=== PATIENT | female | born 1955 | race Caucasian/White ===

== ENCOUNTER → 2017-02-18 | Outpatient (CLI) | payer OTHER ==
[~2017-02-18] MED LIST: ESTRACE0.5 MG PO; LISINOPRIL20 MG PO
== END ==
LOC: CAT 11:08
DX: Z13.6 Encounter for screening for cardiovascular disorders (principal)

== ENCOUNTER → 2018-02-03 | Outpatient (CLI) | payer OTHER ==
[~2018-02-03] MED LIST changes: +LIPITOR10 MG PO; +LISINOPRIL10 MG PO; +LUTEIN-ZEAXANT1 EACH PO; +PREMARIN30 GM
== END ==
LOC: RAD 13:28
DX: Z12.31 Encounter for screening mammogram for malignant neoplasm of breast (principal)

== ENCOUNTER → 2018-07-15 | Outpatient (CLI) | payer OTHER ==
[~2018-07-15] MED LIST changes: -LIPITOR10 MG PO; -LISINOPRIL10 MG PO; -LUTEIN-ZEAXANT1 EACH PO; -PREMARIN30 GM
== END ==
LOC: ULTRA 08:56
DX: N63.20 Unspecified lump in the left breast, unspecified quadrant (principal); R92.8 Other abnormal and inconclusive findings on diagnostic imaging of breast; I10 Essential (primary) hypertension; E78.00 Pure hypercholesterolemia, unspecified

== ENCOUNTER → 2018-07-19 | Outpatient (CLI) | payer OTHER ==
--- NOTE | ~2018-07-19 | PATH ---
[facility] [address] [place] [address] PATHOLOGY RPT PROCEDURE Name: LOUIS COTTON Room #: REG SHABNAM Kim#: [id number] Admission: 07/19/18 Date of : 53 Discharge: Report #: [id number] Path Case #: [id number] LCA Accession Number: [id number] . 01 Material submitted: . LEFT BREAST MASS 12:00, 3 CM FN . 01 Clinical history: . Left breast mass . 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 [facility]/07/20/2018 . 02 Comment: Specimen type: Needle core biopsy Tumor site: Left breast at 12:00, 3 cm from nipple Tumor quantitation: 1.6 cm Histologic type: Invasive ductal carcinoma with lobular features Histologic grade: Naylor grade 2 Tubules, nuclei and mitoses: 3, 2 and 1, respectively LVSI: Not identified Microcalcifications: Present in non-neoplastic ducts Markers: ER, [place], HER2/WALE and Ki-67 Block: A1 . Co-review: Dr. Jennie Nunez. . Findings are telephoned to Salinatomasa Song, in our breast center, at 2:30 p.m. on 07/20/18. . (IUV:mml; 07/20/18) . 02 Electronically signed: . Queenie Amador MD, Pathologist NPI- [id number] . 01 Gross description: . The specimen is received in formalin, labeled "Louis Cotton left breast 12:00 3 cm". Received are multiple needle cores of yellow-granados fibrofatty tissue measuring 3.5 x 3.4 x 0.7 cm in aggregate dimensions. The specimen is submitted entirely in cassettes A1 through A3. The cold ischemic time is 5 minutes. The total formalin fixation time is 11 hours [place] [address] PATHOLOGY RPT PROCEDURE Name: LOUIS COTTON Room #: REG SHABNAM Kim#: [id number] Admission: 07/19/18 Date of : 53 Discharge: Report #: [id number] Path Case #: [id number] (CAA; 07/19/2018) QAC/QAC . 02 Pathologist provided ICD-10: C50.912 . 02 CPT . 447077 Performed at: [address], [place], [place] [id number] MD Alonso Buckner MD Phone: [phone] Performed at: [address] [id number] MD Queenie Amador MD Phone: [phone]
== END | disposition home or self-care (01) ==
LOC: ULTRA 09:21
DX: C50.912 Malignant neoplasm of unspecified site of left female breast (principal); Z88.6 Allergy status to analgesic agent; Z88.8 Allergy status to other drugs, medicaments and biological substances; Z79.899 Other long term (current) drug therapy

== ENCOUNTER 2018-08-16 05:25 | Day surgery (SDC) | payer OTHER ==
[~2018-08-16] VITALS: Ht 177.8 cm; Wt 76.4 kg
--- NOTE | ~2018-08-16 | O ---
[facility] [address] [place] [address] OPERATIVE REPORT Name: LOUIS CHAPA Room #: DEP [facility]..#: [id number] Admission: 08/16/18 Attend Phys: Brian Wiseman MD Discharge: 08/16/18 Date of : 53 Report #: [id number] THIS REPORT FOR: //name// CC: Ok Zhang MD DATE OF SERVICE: 08/16/2018 PREOPERATIVE DIAGNOSIS: Carcinoma left upper breast, 12 o'clock. POSTOPERATIVE DIAGNOSIS: Carcinoma left upper breast, 12 o'clock, final pathology pending. OPERATION: 1. Lymphatic mapping. 2. Left breast segmental resection with mammographic wire localization and specimen x-ray. 3. Placement of BioZorb tissue marker. 4. Oncoplastic closure. 5. Left axillary sentinel lymph node biopsy. SURGEON: Brian Wiseman MD REPRESENTATIVE PERSONAL SERVICE: Nash Loyola MS3. SECOND GOLD FRAME ASSEMBLER: Kanu Walker MS3. ANESTHESIA: General. DESCRIPTION OF PROCEDURE: The patient was taken to Nuclear Medicine and the radiologist injected technetium sulfur colloid into the left breast as per protocol. Lymphoscintigraphy demonstrated a hot spot in the left axilla, which was marked by the radiologist. The radiologist also performed wire localization for the biopsy clip and tumor at the 12 o'clock position, left breast, several centimeters above the nipple. The patient was brought to the operating room for general anesthetic. Lymphatic mapping was performed using the gamma probe and we confirmed the presence of a left axillary hotspot with a 10-second count of 933. Next, 5 mL of Lymphazurin blue dye were injected around the tumor site in the 12 o'clock position left breast using sterile technique with alcohol prep. Next, the left breast and left axilla were widely prepped with ChloraPrep solution. Sterile drapes were applied. A curved circumareolar incision was made in the left upper breast just above the areolar edge in order to give the [facility] [address] [place] [address] OPERATIVE REPORT Name: LOUIS CAHPA Room #: DEP [facility] M.R.#: [id number] Admission: 08/16/18 Attend Phys: Brian Wiseman MD Discharge: 08/16/18 Date of : 53 Report #: [id number] patient the most cosmetic incision possible. Dissection was carried down through the skin and subcutaneous layer and then cephalad toward the guidewire, which was delivered into the incision. A lumpectomy or segmental resection was performed in order to remove the breast tissue widely around the shaft and tip of the guidewire. The specimen was marked with sutures for orientation purposes. Specimen x-ray confirmed removal of the guidewire and the clip and the tumor together with normal breast tissue all around. The radiologist was pleased with the specimen x-ray and so was I. The specimen had already been marked with sutures for orientation purposes and it was submitted fresh to the pathologist. Palpation from within the breast revealed no other suspicious areas. Hemostasis was obtained using electrocautery. In order to give the patient the most cosmetic incision and closure possible, I elected to proceed with oncoplastic mobilization and reapproximation of the tissue flaps. It is estimated that greater than 35 cm2 of tissue were mobilized from the underlying pectoralis muscle and the overlying skin envelope. We used the BioZorb tissue marker sizer and selected the 1 x 3 cm low profile BioZorb tissue marker, which was placed into the lumpectomy cavity. The marker was sutured in place using interrupted 3-0 Vicryl. The oncoplastic closure was completed using interrupted 3-0 Vicryl. The skin was approximated using running 4-0 subcuticular PDS. Next, a transverse incision was made in the left axilla and the axilla was entered with care being taken to avoid injury to the neurovascular structures. We found a single sentinel node, which was dissected away from surrounding tissues and then removed, controlling the blood and lymphatic supply using Harmonic scalpel. The sentinel node had a 10-second count of 3234, it was blue. This was submitted to pathology. Palpation revealed no other suspicious nodes nor were there any other blue or radioactive nodes to be found. The post-resection bed count was 5, which was well below 10% of the highest node. Hemostasis was excellent. The sponge, instrument and needle counts were reported as correct. The incision was closed in layers using running 3-0 Vicryl for the deep layer and running 4-0 PDS for the subcuticular layer. Sterile dressings were applied and the patient was taken to recovery in satisfactory condition. Estimated blood loss was less than 10 mL. <ELECTRONICALLY SIGNED> By: Brian Wiseman MD 08/22/18 [id number] [id number] Brian Wiseman MD /nt
--- NOTE | ~2018-08-16 | PATH ---
[facility] [address] [place] [address] PATHOLOGY RPT PROCEDURE Name: LOUIS COTTON Room #: DEP [facility] M.R.#: [id number] Admission: 08/16/18 Date of : 53 Discharge: 08/16/18 Report #: [id number] Path Case #: [id number] LCA Accession Number: [id number] . 01 Material submitted: . PART A: LEFT BREAST SEGMENTAL RESECTION PART B: LEFT AXILLARY SENTINEL LYMPH NODE #1 . 01 Clinical history: . Carcinoma left breast . 02 Diagnosis: A. Breast, left breast, segmental resection: - INVASIVE MODERATELY DIFFERENTIATED DUCTAL CARCINOMA WITH LOBULAR FEATURES, LISA GRADE 2. - INVASIVE CARCINOMA MEASURES 2.8 X 2.4 X 1.6 CM IN GREATEST DIMENSION. - Margins of resection free of malignancy; closest inferior margin is 2 mm away and the closest superior margin is 3 mm away. - FOCAL LYMPH-VASCULAR SPACE INVASION PRESENT. . B. Lymph node, left axillary sentinel lymph node, biopsy: - POSITIVE FOR A 3 MM METASTATIC FOCUS WITH FOCAL EXTRACAPSULAR EXTENSION EXTENDING 1 MM BEYOND THE CAPSULE. . (IUV:shawn; 08/19/2018) . . Surgical Pathology Cancer Case Summary . . Protocol posting date: November 2017 . . INVASIVE CARCINOMA OF THE BREAST: . . Specimen Identification . Procedure ___ Segmental resection . . Specimen Laterality ___ Left . . Tumor Site: Invasive Carcinoma ___ Position (specify): 12 [address] [address] PATHOLOGY RPT PROCEDURE Name: LOUIS COTTON Room #: DEP [facility]..#: [id number] Admission: 08/16/18 Date of : 53 Discharge: 08/16/18 Report #: [id number] Path Case #: [id number] . . Tumor Size ___ Greatest dimension of largest invasive focus >1 mm (millimeters): 28 mm . Histologic Type ___ Invasive ductal carcinoma with lobular features . . Histologic Grade (Newport Histologic Score) . Glandular (Acinar)/Tubular Differentiation ___ Score 3 (<10% of tumor area forming glandular/tubular structures) . Nuclear Pleomorphism ___ Score 2 . Mitotic Rate ___ Score 1 (= 3 mitoses per mm2) (see Table 1) . Overall Grade ___ Grade 2 (scores of 6 or 7) . . Tumor Focality . ___ Single focus of invasive carcinoma . . Ductal Carcinoma In Situ (DCIS) . ___ Present . Architectural Patterns . ___ Cribriform type . . Nuclear Grade . ___ Grade II (intermediate) . . Necrosis . ___ Not identified . [address] [address] PATHOLOGY RPT PROCEDURE Name: LOUIS COTTON ANN Room #: DEP [facility]..#: [id number] Admission: 08/16/18 Date of : 53 Discharge: 08/16/18 Report #: [id number] Path Case #: [id number] . Tumor Extension . Skin . ___Not applicable. . . Nipple . ___ Not applicable . . Margins . Invasive Carcinoma Margins . ___ Uninvolved by invasive carcinoma . Distance from closest margin (millimeters): . Distance from closest margin (millimeters): 2 mm . Specify closest margin: inferior . Distance from closest margin (millimeters): 3 mm . Specify closest margin: superior . Distance from closest margin (millimeters): 5 mm . Specify closest margin: medial . DCIS Margins (required only if DCIS is present in specimen) . ___ Uninvolved by DCIS (required only if residual DCIS is present in specimen) . Distance from closest margin (millimeters): 3 mm . Specify closest margin: inferior. . Regional Lymph Nodes . ___ Involved by tumor cells . Number of Lymph Nodes with Macrometastases (>2 mm): 1 . [facility] [address] [place] [address] PATHOLOGY RPT PROCEDURE Name: LOUIS COTTON Room #: DEP [facility].Saul.#: [id number] Admission: 08/16/18 Date of : 53 Discharge: 08/16/18 Report #: [id number] Path Case #: [id number] Size of Largest Metastatic Deposit (millimeters): 3mm . Extranodal Extension: . ___ Identified, extends 1 mm beyond the capsule . . Number of Lymph Nodes Examined: 1 . Number of [place] Nodes Examined: 1 . . Treatment Effect . ___ No known presurgical therapy . . Lymphovascular Invasion ___ Present . . Dermal Lymphovascular Invasion . ___ Not applicable . . Pathologic Stage Classification (pTNM, AJCC 8th Edition) Note: Reporting of pT, pN, and (when applicable) pM categories is based on information available to the pathologist at the time the report is issued. . . TNM Descriptors . Primary Tumor (Invasive Carcinoma) (pT) ___ pT2: Tumor >20 mm but =50 mm in greatest dimension . . Category (pN) . ___ pN1a (sn): Metastases in 1 to 3 axillary lymph nodes, at least 1 metastasis larger than 2.0 mm . . Distant Metastasis (pM) ___ pMX: Not known QMS/08/19/2018 . 02 [facility] [address] [place] [address] PATHOLOGY RPT PROCEDURE Name: LOUIS COTTON [facility] [id number] Admission: 08/16/18 Date of : 53 Discharge: 08/16/18 Report #: [id number] Path Case #: [id number] Comment: AE1/AE3 immunohistochemical stain is performed on block B1 and it confirms the presence of macrometastasis with focal extracapsular extension. . Findings are discussed with Dr. Brian Wiseman at 09:58 a.m. on 08/19/2018. (IUV:shawn; 08/19/2018) . 02 Electronically signed: . Queenie Amador MD, Pathologist NPI- [id number] . 01 Gross description: . A. The specimen is received in formalin, labeled "Louis Cotton, left breast segmental resection, long suture lateral, short suture superficial". Received is a 53 g lumpectomy specimen oriented with a short suture designating superficial/anterior margin, and a long suture designating the lateral margin. The specimen measures 6.2 cm from superficial/anterior to deep/posterior, 5.8 cm from medial to lateral, and 4.0 cm from superior to inferior. There is a localization wire present which enters through the superficial/anterior aspect. The specimen is inked as follows: Superior-blue, inferior-green, lateral-red, medial-yellow, superficial/anterior-black, deep/posterior-orange. Sectioning reveals a previous biopsy site, with a metallic clip present, measuring 1.5 x 0.8 x 0.5 cm. This site is 3.5 cm from the superficial/anterior margin, 2.0 cm from the deep/posterior margin, 1.0 cm from the superior margin, 1.3 cm from the inferior margin, 1.7 cm from the lateral margin, and 1.4 cm from the medial margin. Superficial/anterior and inferior to the previous biopsy site, there is a poorly circumscribed pink-granados to white-granados possible mass measuring 2.8 x 2.4 x 1.6 cm in greatest dimensions. This possible mass is 1.0 cm from the superficial/anterior margin, 3.3 cm from the deep/posterior margin, 1.4 cm from the superior margin, grossly approaches the inferior margin, is 2.1 cm from the lateral margin, and 0.5 cm from the medial margin. The remainder the specimen is comprised of yellow-granados fibrofatty breast tissue, with a slight amount of fat necrosis present near the previous biopsy site. The specimen is submitted representatively as follows: . A1 most superficial/anterior margin A2 most deep/posterior margin A3-A7 entire previous biopsy site submitted from deep/posterior to superficial/anterior aspects A8-A14 entire possible mass submitted from deep/posterior to superficial/anterior aspects, with closest margin in cassette A11, with each section and additionally bisected into superior and inferior aspects. . The cold ischemic time is 22 minutes. The total formalin fixation time is 31 hours and 25 [place] [address] PATHOLOGY RPT PROCEDURE Name: LOUIS COTTON Room #: DEP [facility] M.R.#: [id number] Admission: 08/16/18 Date of : 53 Discharge: 08/16/18 Report #: [id number] Path Case #: [id number]. The specimen is received in formalin, labeled "Louis Cotton, left axillary sentinel lymph node 1, blue yes, count 3234". Received is a segment of bright yellow lobulated tissue measuring 3.2 x 2.5 x 1.3 cm in greatest dimensions. Dissection and palpation of the specimen reveals a single lymph node measuring 1.3 cm in maximum dimensions. The lymph node is bisected and entirely submitted in cassette B1. Immunohistochemical stains are ordered. (CAA; 08/17/2018) QAC/QAC . 02 Pathologist provided ICD-10: C50.912, C77.3 . 02 CPT . 720916, 427667, I72661 Specimen Comment: A courtesy copy of this report has been sent to Specimen Comment: [phone], , , . Specimen Comment: Report sent to , , Specimen Comment: and Specimen Comment: A duplicate report has been generated due to demographic updates. Performed at: [address], [place], [place] [id number] MD Alonso Buckner MD Phone: [phone] Performed at: [address] [id number] MD Queenie Amador MD Phone: [phone]
[~2018-08-16 05:25] MED LIST changes: +LIPITOR10 MG PO; +LISINOPRIL10 MG PO; +LUTEIN-ZEAXANT1 EACH PO; +PREMARIN30 GM
[2018-08-16 10:00] LABS: HEMATOCRIT 42.1 % (37.0-47.0); HEMOGLOBIN 14.3 gm/dL (12.0-15.0); MCH 30.8 pg (26.0-34.0); MCHC 34.1 g/dL (28.0-37.0); MCV 90.3 fL (80.0-100.0); RBC 4.66 mil/uL (4.20-5.00); RDW 13.1 % (10.5-14.5); WBC 5.2 thou/uL (4.0-11.0)
[2018-08-16 10:08] LABS: CALCIUM 9.4 mg/dL (8.5-10.1); CREATININE 0.8 mg/dL (0.6-1.0); POTASSIUM 4.2 mmol/L (3.5-5.1)
[2018-08-16 10:13] LABS: ALBUMIN 3.5 g/dL (3.4-5.0); TOTAL BILIRUBIN 0.5 mg/dL (<0.1-1.0); TOTAL PROTEIN 6.8 g/dL (6.4-8.2)
[2018-08-16 12:08] VITALS: BP 142/71
== END 2018-08-16 16:00 | disposition home or self-care (01) ==
LOC: TBA 05:25 → OR 05:25 → EDSTATUS 12:01 → OR 12:10 → RADSTEREO 12:26 → OR 12:38
PROVIDERS: Specialist
DX: C50.912 Malignant neoplasm of unspecified site of left female breast (principal); C77.3 Secondary and unspecified malignant neoplasm of axilla and upper limb lymph nodes; I10 Essential (primary) hypertension; Z90.710 Acquired absence of both cervix and uterus; Z98.890 Other specified postprocedural states; Z79.899 Other long term (current) drug therapy; Z88.6 Allergy status to analgesic agent; Z88.8 Allergy status to other drugs, medicaments and biological substances
CPT/HCPCS: 50010; 50101; 50386; 50403; 52190; 53332; 56524; 56526; 62110; 62900; 70005